=== PATIENT | male | born 1960 | race Caucasian/White ===

== ENCOUNTER 2020-11-15 18:37 | Emergency (ER) | payer SELFPAY ==
--- NOTE | 2020-11-15 20:25 | NUR ---
ERP AT BEDSIDE FOR ASSESSMENT
[2020-11-15] MEDS ORDERED: HYDROmorphone 1 MG/ML, 1ML INJ IM ONE (20:30)
[2020-11-15] MEDS ORDERED: LIDOCAINE-MPF 1%, 5ML ONE (20:52)
[2020-11-15] MEDS ORDERED: HYDROmorphone 1 MG/ML, 1ML INJ ONE (20:52)
[2020-11-15] MEDS ORDERED: LIDOCAINE-MPF 1%, 5ML INFIL ONE (21:00)
--- NOTE | 2020-11-15 21:01 | NUR ---
PT MEDICATED PER NOV FOR [facility]
[2020-11-15 21:41] VITALS: BP 183/71
--- NOTE | 2020-11-15 21:42 | NUR ---
Patient/Caregiver given discharge instructions and they have confirmed that they understand the instructions. Patient ambulatory with steady gait.
--- NOTE | 2020-11-15 22:35 | NUR ---
Patient/Caregiver given discharge instructions and they have confirmed that they understand the instructions. Patient wheeled to dc desk with daughter, daughter will drive home.
== END 2020-11-15 22:06 | disposition home or self-care (01) ==
LOC: ED 19:56
DX: M25.572 Pain in left ankle and joints of left foot (principal); D17.24 Benign lipomatous neoplasm of skin and subcutaneous tissue of left leg; R94.31 Abnormal electrocardiogram [ECG] [EKG]; M19.90 Unspecified osteoarthritis, unspecified site
CPT/HCPCS: 10160; 73610; 93005; 96372; 99284; J1170; 10060; 99283